=== PATIENT | female | born 1990 | race Caucasian/White ===

== ENCOUNTER 2022-04-23 23:22 | Day surgery (SDC) | payer SELFPAY ==
[2022-04-24 00:05] VITALS: BMI 34.9
[2022-04-24] MEDS ORDERED: hydrALAZINE 20 MG/ML VIAL SLOW IVP PRN (01:02)
== END 2022-04-24 01:17 | disposition home or self-care (01) ==
LOC: CSHLD/OP 23:22
PROVIDERS: ATTEND Obstetrics & Gynecology
DX: O47.03 False labor before 37 completed weeks of gestation, third trimester (principal); O26.613 Liver and biliary tract disorders in pregnancy, third trimester; K83.1 Obstruction of bile duct; O26.893 Other specified pregnancy related conditions, third trimester; L29.8 Other pruritus; Z3A.36 36 weeks gestation of pregnancy
CPT/HCPCS: 99282

== ENCOUNTER 2022-04-27 02:11 | Day surgery (SDC) | payer SELFPAY ==
[2022-04-27] MEDS ORDERED: hydrALAZINE 20 MG/ML VIAL SLOW IVP PRN ×2 (02:31→11:40)
[2022-04-27 02:35] VITALS: BMI 34.9
[2022-04-27] MEDS ORDERED: Lactated Ringer's 1,000 ML IV SCH ×2 (03:00→06:45)
[2022-04-27 03:26] LABS: Bilirubin Neg (Negative); Blood, Urine Negative (Negative); Clarity Clear (Clear); Glucose, Urine (Dipstick) Normal (Negative); Ketone, Urine Negative (Negative); Leukocyte Negative (Negative); Nitrite Negative (Negative); Protein, Urine (Dipstick) Negative (Neg-Trace); Specific Gravity, Urine 1.015 (1.002-1.036); Urobilinogen Normal mg/dL (Less than 2); pH, Urine 6.5 (5.0-9.0)
[2022-04-27 03:47] LABS: ALT (SGPT) 17 U/L (8-55); AST (SGOT) 20 U/L (5-34); Albumin 3.1 g/dL (3.5-5.0); Alkaline Phosphatase 197 U/L (40-110); Anion Gap 17 mmol/L (10-20); BUN (Urea Nitrogen) 9 mg/dL (7.0-18.7); Bilirubin, Total 0.3 mg/dL (0.2-1.2); Calc. Creatinine Clearance 214 mL/min (70-130); Calcium 8.9 mg/dL (7.8-10.44); Carbon Dioxide 18 mmol/L (22-29); Chloride 106 mmol/L (98-107); Globulin 3.3 g/dL (2.4-3.5); Glucose 94 mg/dL (70-105); Potassium 4.3 mmol/L (3.5-5.1); Protein, Total 6.4 g/dL (6.0-8.3); Sodium 137 mmol/L (136-145)
[2022-04-27] MEDS ORDERED: Ondansetron PF 4 MG/2 ML Vial IVP PRN (11:40)
[2022-04-27] MEDS ORDERED: Promethazine HCl 25 MG/ML VIAL IM PRN (11:40)
[2022-04-27 12:51] VITALS: BP 132/83; TEMP 97.9
[2022-04-27 14:47] LABS: Hemoglobin 9.7 g/dL (12.0-15.5); Mean Corpuscular HGB CONC 32.9 g/dL (32.0-36.0); Mean Corpuscular Hemoglobin 29.4 pg (27.0-33.0); Mean Corpuscular Volume 89.4 fl (81.6-98.3); Mean Platelet Volume 11.5 fl (7.4-10.4); Platelet Count 241 10x3/uL (150-450); White Blood Cell (WBC) Count 9.7 10x3/uL (3.5-10.5)
[2022-04-27 15:15] LABS: Hep B Surf Ag Non-Reactive S/CO (NonReactive); Syphilis Antibody Nonreactive (Nonreactive); Syphilis Antibody Index 0.03 S/CO (<1.00 Non-Reactive)
[2022-04-27 15:17] LABS: HBSAg Index 0.18 S/CO (0-0.99)
== END 2022-04-27 16:23 | disposition home or self-care (01) ==
LOC: CSHLD/OP 02:11
PROVIDERS: ATTEND Obstetrics & Gynecology
DX: O60.03 Preterm labor without delivery, third trimester (principal); O99.613 Diseases of the digestive system complicating pregnancy, third trimester; K52.9 Noninfective gastroenteritis and colitis, unspecified; O26.893 Other specified pregnancy related conditions, third trimester; L29.8 Other pruritus; Z3A.36 36 weeks gestation of pregnancy
CPT/HCPCS: 36415; 51701; 59025; 80053; 81003; 85027; 86780; 86850; 86870; 86900; 86901; 87340; 87480; 87510; 87660; 96360; 96361; 99285

== ENCOUNTER 2022-05-02 16:51 | Day surgery (SDC) | payer SELFPAY ==
[2022-05-02] MEDS ORDERED: hydrALAZINE 20 MG/ML VIAL SLOW IVP PRN (18:03)
== END 2022-05-02 18:16 | disposition home or self-care (01) ==
LOC: CSHLD/OP 16:51
PROVIDERS: ATTEND Obstetrics & Gynecology
DX: O47.1 False labor at or after 37 completed weeks of gestation (principal); O99.353 Diseases of the nervous system complicating pregnancy, third trimester; G47.9 Sleep disorder, unspecified; Z3A.37 37 weeks gestation of pregnancy

== ENCOUNTER 2022-05-08 04:04 | Inpatient (IN) | payer SELFPAY ==
[2022-05-08 04:19] VITALS: BMI 34.9
[2022-05-08] MEDS ORDERED: Ondansetron PF 4 MG/2 ML Vial IVP PRN ×3 (04:51→16:47)
[2022-05-08] MEDS ORDERED: hydrALAZINE 20 MG/ML VIAL SLOW IVP PRN ×2 (04:51→16:47)
[2022-05-08] MEDS ORDERED: Lidocaine 1% (PF) 30 ML VIAL SC PRN (04:51)
[2022-05-08] MEDS ORDERED: Promethazine HCl 25 MG/ML VIAL IM PRN ×2 (04:51→13:17)
[2022-05-08] MEDS ORDERED: NS w/ Oxytocin 30 units 500 ML IV SCH ×2 (05:00→17:30)
[2022-05-08] MEDS: Lactated Ringer's 1,000 ML IV SCH ×2 (05:00→09:30)
[2022-05-08 05:17] LABS: Hemoglobin 10.8 g/dL (12.0-15.5); Mean Corpuscular HGB CONC 34.7 g/dL (32.0-36.0); Mean Corpuscular Volume 86.4 fl (81.6-98.3); Mean Platelet Volume 11.2 fl (7.4-10.4); Platelet Count 250 10x3/uL (150-450); RBC Distribution Width 13.5 % (11.5-14.5); White Blood Cell (WBC) Count 11.4 10x3/uL (3.5-10.5)
[2022-05-08] MEDS ORDERED: Fentanyl 2 mcg/Bup 0.1% Cadd 100 ML ONE ×2 (05:24→13:13)
[2022-05-08 05:49] LABS: Hep B Surf Ag Non-Reactive S/CO (NonReactive)
[2022-05-08 05:51] LABS: HBSAg Index 0.17 S/CO (0-0.99); Syphilis Antibody Nonreactive (Nonreactive); Syphilis Antibody Index 0.03 S/CO (<1.00 Non-Reactive)
[2022-05-08 06:13] LABS: SARS-CoV-2 NAA Rapid Test Not Detected (NotDetected)
[2022-05-08] MEDS ORDERED: Bupivacaine/Epinephrine 0.25% 30 ML VIAL ONE (08:00)
[2022-05-08] MEDS ORDERED: ePHEDrine Sulfate 50 MG/10 ML VIAL SLOW IVP PRN (13:17)
[2022-05-08] MEDS ORDERED: Naloxone HCl 0.4 mg/ml Vial IVP PRN ×2 (13:17)
[2022-05-08] MEDS ORDERED: Acetaminophen 325 MG TAB PO PRN (13:17)
[2022-05-08] MEDS ORDERED: Moisturizing Cream (Eucerin) 113 GM JAR TOP PRN (13:17)
[2022-05-08] MEDS ORDERED: diphenhydrAMINE 50 MG/ML VIAL IVP PRN (13:17)
[2022-05-08] MEDS ORDERED: Lactated Ringer's 500 ML IV PRN (13:19)
[2022-05-08] MEDS ORDERED: Communication Order-Pharmacy FS SCH (13:30)
[2022-05-08] MEDS ORDERED: Fentanyl 2 mcg/Bupivacaine 0.1% Cassette 100 ML EPIDURAL SCH (13:30)
[2022-05-08] MEDS ORDERED: diphenhydrAMINE 25 MG CAP PO PRN (16:47)
[2022-05-08] MEDS ORDERED: Preparation H Ointment 28 GM TUBE PR PRN (16:47)
[2022-05-08] MEDS ORDERED: Boostrix 0.5 ML (Tdap) VIAL IM ONE (16:47)
[2022-05-08] MEDS ORDERED: Bisacodyl 10 MG SUPP PR PRN (16:47)
[2022-05-08] MEDS ORDERED: Lanolin Ointment 7 GM TUBE TOP PRN (16:47)
[2022-05-08] MEDS ORDERED: HYDROcodone/Acetaminophen 5/325 mg Tablet PO PRN (16:47)
[2022-05-08] MEDS ORDERED: Benzocaine-Menthol 82.5 ML CAN TOP PRN (16:47)
[2022-05-08] MEDS ORDERED: Milk Of Magnesia 30 ML UDCUP PO PRN (16:47)
[2022-05-08] MEDS: Ibuprofen 800 MG TAB PO SCH ×2 (16:58→23:58)
[2022-05-08] MEDS: Ferrous Sulfate 325 MG TAB PO SCH (18:32)
[2022-05-08] MEDS: Docusate 100 MG CAP PO SCH (23:58)
[2022-05-09] MEDS: HYDROcodone/Acetaminophen 5/325 mg Tablet PO PRN ×2 (08:03→14:43)
[2022-05-09] MEDS: Docusate 100 MG CAP PO SCH (08:03)
[2022-05-09] MEDS: Ibuprofen 800 MG TAB PO SCH ×2 (08:03→16:38)
[2022-05-09] MEDS: Ferrous Sulfate 325 MG TAB PO SCH ×2 (08:04→17:34)
[2022-05-09] MEDS ORDERED: Prenatal Vitamin 1 TAB PO SCH (09:00)
[2022-05-09 09:09] VITALS: TEMP 97.6
[2022-05-09 17:36] VITALS: BP 126/81
== END 2022-05-09 17:40 | disposition home or self-care (01) | DRG 807 ==
LOC: CSHLD/OP 04:04 → CSHLD 05:17 → CSHPP 17:20
PROVIDERS: ADMIT Obstetrics & Gynecology; ATTEND Obstetrics & Gynecology
PROC: 10907ZC Drainage of Amniotic Fluid, Therapeutic from Products of Conception, Via Natural or Artificial Opening (ICD-10-PCS; principal; 2022-05-08)
PROC: 10E0XZZ Delivery of Products of Conception, External Approach (ICD-10-PCS; 2022-05-08)
PROC: 0KQM0ZZ Repair Perineum Muscle, Open Approach (ICD-10-PCS; 2022-05-08)
DX: O26.893 Other specified pregnancy related conditions, third trimester (principal); Z37.0 Single live birth; O70.0 First degree perineal laceration during delivery; Z20.822 Contact with and (suspected) exposure to COVID-19; Z3A.38 38 weeks gestation of pregnancy; Z79.899 Other long term (current) drug therapy; Z67.41 Type O blood, Rh negative
CPT/HCPCS: 36415; 51702; 85027; 86780; 86850; 86900; 86901; 87340; 99285; J2590; J7120; U0002